=== PATIENT | male | born 2000 | race African-American/Black ===

== ENCOUNTER 2022-10-31 21:19 | Emergency (ER) | payer OTHER ==
[~2022-10-31] VITALS: Ht 177.8 cm; Wt 95.8 kg
[2022-10-31 23:59] VITALS: BP 152/87
== END 2022-11-01 00:04 | disposition home or self-care (01) ==
LOC: M ED 21:19
DX: H66.92 Otitis media, unspecified, left ear (principal); F17.210 Nicotine dependence, cigarettes, uncomplicated